=== PATIENT | female | born 1970 | race Caucasian/White ===

== ENCOUNTER 2017-04-05 08:10 | Emergency (ER) | payer MEDICAID, OTHER ==
[~2017-04-05] VITALS: Ht 170.2 cm; Wt 70.0 kg
[2017-04-05 08:47] VITALS: BP 127/85
== END 2017-04-05 09:35 | disposition home or self-care (01) ==
LOC: EMS 08:12
DX: A59.01 Trichomonal vulvovaginitis (principal); N39.0 Urinary tract infection, site not specified
CPT/HCPCS: 81025; 99283

== ENCOUNTER 2017-07-02 09:18 | Emergency (ER) | payer MEDICAID ==
[~2017-07-02] VITALS: Ht 170.2 cm; Wt 70.9 kg
[2017-07-02] MEDS ORDERED: METR500 PO (09:29)
[2017-07-02 10:09] LABS: APPEARANCE,URINE TURBID (CLEAR); BILIRUBIN,URINE NEGATIVE (NEGATIVE); GLUCOSE, URINE (UA) NEGATIVE (NEGATIVE); KETONES,URINE NEGATIVE (NEGATIVE); LEUKOCYTE ESTERASE ,URINE SMALL (NEGATIVE); NITRATE,URINE NEGATIVE (NEGATIVE); OCCULT BLOOD,URINE TRACE (NEGATIVE); PH,URINE 5.5 (5.0-8.0); PROTEIN,URINE TRACE (NEGATIVE); UROBILINOGEN,URINE 0.2 mg/dL (<=1.0)
[2017-07-02 10:48] VITALS: BP 128/83
[2017-07-02 11:04] LABS: BACTERIA,URINE Many /HPF (None Seen)
[2017-07-02 11:05] LABS: CALCIUM OXALATE CRYSTALS,UR Many /LPF (None Seen); SQUAMOUS EPITHELIAL CELL,UR Moderate /LPF (None Seen)
== END 2017-07-02 12:04 | disposition home or self-care (01) ==
LOC: EMS 09:18
DX: N39.0 Urinary tract infection, site not specified (principal)
CPT/HCPCS: 87086; 99284